=== PATIENT | female | born 1970 | race Caucasian/White ===

== ENCOUNTER 2019-10-31 13:46 | Inpatient (IN) | payer SELFPAY ==
[~2019-10-31] VITALS: Ht 152.4 cm; Wt 68.0 kg
[2019-10-31 18:21] LABS: BASOPHILS % 0.6 % (0.0-2.0); EOSINOPHILS % 0.1 % (0.0-5.0); HEMATOCRIT. 34.1 % (36.0-48.0); HEMOGLOBIN. 11.3 g/dL (12.0-16.0); LYMPHOCYTES % 20.8 % (20.0-50.0); MEAN CORPUSCULAR HEMOGLOBIN 31.3 pg (28.0-32.0); MEAN CORPUSCULAR VOLUME 94.7 fL (81.0-99.0); MEAN PLATELET VOLUME 9.6 fl (7.4-10.4); MONOCYTES % 7.6 % (2.0-8.0); NEUTROPHILS % 70.9 % (40.0-76.0); PLATELET 300 x1000/uL (130-400); RED CELL DISTRIBUTION WIDTH 27.4 % (11.6-14.6)
[2019-10-31 18:23] LABS: CLARITY URINE CLEAR (CLEAR); COLOR URINE YELLOW (YELLOW); KETONES URINE 3+ (NEGATIVE); LEUKOCYTE ESTERASE URINE NEGATIVE (NEGATIVE); NITRITE URINE NEGATIVE (NEGATIVE); OCCULT BLOOD URINE NEGATIVE (NEGATIVE); PH URINE 5.5 (4.5-8.0); PROTEIN URINE NEGATIVE (NEGATIVE); SPECIFIC GRAVITY URINE 1.016 (1.005-1.030); UROBILINOGEN URINE 0.2 E.U./dL (0.2-1.0)
[2019-10-31 18:27] LABS: CHLORIDE 100 mEq/L (98-107)
[2019-10-31 18:28] LABS: HCG SCREEN NEGATIVE
[2019-10-31] MEDS ORDERED: SODIUM CHLORIDE 0.9% 1,000 ML IV ONE (18:34)
[2019-10-31] MEDS ORDERED: ONDANSETRON HCL 4MG/2ML INJ IV STA (18:34)
[2019-10-31] MEDS ORDERED: MORPHINE SULFATE 4 MG/ML CPJ (NOT FOR IM USE) IV STA (18:34)
[2019-10-31 19:21] LABS: PLATELET ESTIMATE NORMAL
[2019-10-31] MEDS ORDERED: CLONIDINE 0.1MG TABLET PO ONE (20:15)
[2019-10-31] MEDS ORDERED: MAGNESIUM CITRATE 300ML SOLUTION PO ONE (20:15)
[2019-10-31] MEDS ORDERED: KETOROLAC 30MG/ML VIAL IV ONE (20:15)
[2019-10-31] MEDS ORDERED: MORPHINE SULFATE 4 MG/ML CPJ (NOT FOR IM USE) IV ONE (21:00)
[2019-10-31] MEDS ORDERED: LORAZEPAM 2MG/ML CPJ IV PRN (23:15)
[2019-10-31] MEDS ORDERED: IPRATROPIUM/ALBUTEROL 0.5-3(2.5)MG/3ML NEB NEB PRN (23:15)
[2019-10-31] MEDS ORDERED: MAGNESIUM/ALUMINUM HYDROXIDE/SIMETHICONE 30ML UDC PO PRN (23:15)
[2019-10-31] MEDS ORDERED: GUAIFENESIN 200MG/10ML SUGAR FREE UDC PO PRN (23:15)
[2019-10-31] MEDS ORDERED: CLONIDINE 0.1MG TABLET PO PRN (23:15)
[2019-10-31] MEDS ORDERED: NA PHOS,M-B/NA PHOS,DI-BA ENEMA 118ML PR PRN (23:15)
[2019-10-31] MEDS ORDERED: DOCUSATE SODIUM 100MG CAPSULE PO PRN (23:15)
[2019-10-31] MEDS ORDERED: ONDANSETRON HCL 4MG/2ML INJ IV PRN (23:15)
[2019-10-31] MEDS ORDERED: ACETAMINOPHEN 325MG TABLET PO PRN (23:15)
[2019-10-31] MEDS ORDERED: DIPHENHYDRAMINE 50MG/ML VIAL IV PRN (23:15)
[2019-10-31] MEDS ORDERED: ZOLPIDEM TARTRATE 5MG TABLET PO ONE (23:45)
[2019-10-31] MEDS ORDERED: ONDANSETRON HCL 4MG/2ML INJ IV ONE (23:45)
[2019-11-01 00:41] LABS: CHLORIDE 106 mEq/L (98-107)
[2019-11-01] MEDS: HYDROCODONE/ACETAMINOPHEN 10/325MG TABLET PO PRN ×2 (02:22→23:58)
[2019-11-01 02:42] VITALS: BP 98/59
[2019-11-01 04:00] VITALS: BP 91/53
[2019-11-01] MEDS ORDERED: CITA40TA22 PO (04:10)
[2019-11-01] MEDS ORDERED: LISI-186 PO (04:11)
[2019-11-01] MEDS ORDERED: AMPH20TA3 PO (04:12)
[2019-11-01 06:35] LABS: CHLORIDE 105 mEq/L (98-107)
[2019-11-01 06:37] LABS: BASOPHILS % 0.6 % (0.0-2.0); EOSINOPHILS % 0.4 % (0.0-5.0); HEMATOCRIT. 28.9 % (36.0-48.0); HEMOGLOBIN. 9.5 g/dL (12.0-16.0); LYMPHOCYTES % 34.9 % (20.0-50.0); MEAN CORPUSCULAR HEMOGLOBIN 31.3 pg (28.0-32.0); MEAN PLATELET VOLUME 9.6 fl (7.4-10.4); MONOCYTES % 7.1 % (2.0-8.0); PLATELET 216 x1000/uL (130-400); RED BLOOD CELL COUNT 3.04 mill/uL (4.2-5.4); RED CELL DISTRIBUTION WIDTH 27.2 % (11.6-14.6)
[2019-11-01 06:44] LABS: LDL CHOLESTEROL 53 mg/dL (5-100)
[2019-11-01 06:46] LABS: HDL CHOLESTEROL 93 mg/dL (40-59); T4 FREE 0.92 ng/dL (0.76-1.46)
[2019-11-01 08:00] VITALS: BP 106/60
[2019-11-01] MEDS: AMLODIPINE 10MG TABLET PO SCH (08:39)
[2019-11-01] MEDS: LISINOPRIL 10MG TABLET PO SCH (08:39)
[2019-11-01] MEDS: ENOXAPARIN 40MG/0.4ML SYR SUBCUT SCH (08:53)
[2019-11-01] MEDS: ASPIRIN 81MG EC TABLET PO SCH (08:54)
[2019-11-01] MEDS: MORPHINE SULFATE 2 MG/ML CPJ (NOT FOR IM USE) IV PRN ×4 (08:54→20:53)
[2019-11-01 12:00] VITALS: BP 120/63
[2019-11-01 16:00] VITALS: BP 121/77
[2019-11-01] MEDS: SODIUM CHLORIDE 0.45% 1,000 ML IV SCH ×2 (16:19→23:12)
[2019-11-01 20:00] VITALS: BP 121/79
[2019-11-01] MEDS: ZOLPIDEM TARTRATE 5MG TABLET PO PRN (21:55)
[2019-11-02] VITALS: BP 120/72
[2019-11-02 04:00] VITALS: BP 134/83
[2019-11-02] MEDS: MORPHINE SULFATE 2 MG/ML CPJ (NOT FOR IM USE) IV PRN ×4 (05:20→21:19)
[2019-11-02] MEDS: OMEPRAZOLE 20MG CAPSULE EXTENDED RELEASE PO SCH ×3 (05:20→20:51)
[2019-11-02 07:56] LABS: BASOPHILS % 0.4 % (0.0-2.0); EOSINOPHILS % 0.5 % (0.0-5.0); HEMOGLOBIN. 9.9 g/dL (12.0-16.0); LYMPHOCYTES % 37.6 % (20.0-50.0); MEAN CORPUSCULAR HEMOGLOBIN 31.6 pg (28.0-32.0); MEAN CORPUSCULAR VOLUME 95.7 fL (81.0-99.0); MEAN PLATELET VOLUME 9.4 fl (7.4-10.4); NEUTROPHILS % 52.5 % (40.0-76.0); PLATELET 198 x1000/uL (130-400); RED BLOOD CELL COUNT 3.14 mill/uL (4.2-5.4); RED CELL DISTRIBUTION WIDTH 27.5 % (11.6-14.6)
[2019-11-02 08:00] VITALS: BP 150/85
[2019-11-02] MEDS: AMLODIPINE 10MG TABLET PO SCH (08:07)
[2019-11-02] MEDS: DOCUSATE SODIUM 100MG CAPSULE PO SCH ×2 (08:07→17:05)
[2019-11-02] MEDS: LISINOPRIL 10MG TABLET PO SCH (08:08)
[2019-11-02] MEDS: HYDROCODONE/ACETAMINOPHEN 10/325MG TABLET PO PRN ×3 (08:08→17:59)
[2019-11-02] MEDS: ENOXAPARIN 40MG/0.4ML SYR SUBCUT SCH (08:09)
[2019-11-02] MEDS: ASPIRIN 81MG EC TABLET PO SCH (08:19)
[2019-11-02 08:51] LABS: CHLORIDE 107 mEq/L (98-107)
[2019-11-02 08:57] LABS: TOTAL IRON BINDING CAPACITY 291 ug/dL (250-450)
[2019-11-02 08:59] LABS: AMYLASE 31 IU/L (25-115)
[2019-11-02 09:01] LABS: CREATINE KINASE 26 IU/L (26-192); T4 FREE 0.93 ng/dL (0.76-1.46)
[2019-11-02 12:00] VITALS: BP 108/66
[2019-11-02] MEDS ORDERED: MAGNESIUM 2 G PREMIX 50 ML IV NR (14:00)
[2019-11-02 16:00] VITALS: BP 101/62
[2019-11-02 20:00] VITALS: BP 114/74
[2019-11-02] MEDS ORDERED: BISACODYL 5MG TABLET PO NR (22:15)
[2019-11-02] MEDS: ZOLPIDEM TARTRATE 5MG TABLET PO PRN (22:35)
[2019-11-03] VITALS: BP 111/61
[2019-11-03] MEDS: METOCLOPRAMIDE HCL 10MG/2ML VIAL IV SCH ×4 (03:20→17:33)
[2019-11-03 04:00] VITALS: BP 146/80
[2019-11-03] MEDS ORDERED: BISACODYL 5MG TABLET PO NR (04:00)
[2019-11-03] MEDS: MAGNESIUM CITRATE 300ML SOLUTION PO NR ×2 (05:45→05:54)
[2019-11-03] MEDS: MORPHINE SULFATE 2 MG/ML CPJ (NOT FOR IM USE) IV PRN ×3 (05:46→20:45)
[2019-11-03] MEDS: SODIUM CHLORIDE 0.45% 1,000 ML IV SCH (05:47)
[2019-11-03 07:09] LABS: BASOPHILS % 0.8 % (0.0-2.0); EOSINOPHILS % 0.9 % (0.0-5.0); HEMATOCRIT. 32.5 % (36.0-48.0); HEMOGLOBIN. 10.6 g/dL (12.0-16.0); LYMPHOCYTES % 35.3 % (20.0-50.0); MEAN CORPUSCULAR HEMOGLOBIN 31.3 pg (28.0-32.0); MEAN CORPUSCULAR VOLUME 96.3 fL (81.0-99.0); MEAN PLATELET VOLUME 9.5 fl (7.4-10.4); MONOCYTES % 11.8 % (2.0-8.0); NEUTROPHILS % 51.2 % (40.0-76.0); PLATELET 249 x1000/uL (130-400); RED BLOOD CELL COUNT 3.38 mill/uL (4.2-5.4); RED CELL DISTRIBUTION WIDTH 28.6 % (11.6-14.6)
[2019-11-03 07:59] LABS: CHLORIDE 108 mEq/L (98-107)
[2019-11-03 08:00] VITALS: BP 116/61
[2019-11-03] MEDS: LISINOPRIL 10MG TABLET PO SCH (08:06)
[2019-11-03] MEDS: OMEPRAZOLE 20MG CAPSULE EXTENDED RELEASE PO SCH ×2 (08:06→20:45)
[2019-11-03] MEDS: DOCUSATE SODIUM 250MG CAPSULE PO SCH ×3 (08:07→17:36)
[2019-11-03] MEDS: AMLODIPINE 10MG TABLET PO SCH (08:07)
[2019-11-03] MEDS: ASPIRIN 81MG EC TABLET PO SCH (08:08)
[2019-11-03] MEDS: POLYETHYLENE GLYCOL 3350 (17GM) 1 DOSE PACK PO SCH (08:08)
[2019-11-03] MEDS: ENOXAPARIN 40MG/0.4ML SYR SUBCUT SCH (08:12)
[2019-11-03] MEDS: HYDROCODONE/ACETAMINOPHEN 10/325MG TABLET PO PRN ×2 (09:19→17:51)
[2019-11-03 12:00] VITALS: BP 123/71
[2019-11-03 16:00] VITALS: BP 113/58
[2019-11-03 20:00] VITALS: BP 108/54
[2019-11-03] MEDS: ZOLPIDEM TARTRATE 5MG TABLET PO PRN (20:45)
[2019-11-04] MEDS: METOCLOPRAMIDE HCL 10MG/2ML VIAL IV SCH
[2019-11-04 04:00] VITALS: BP 128/72
[2019-11-04] MEDS: MORPHINE SULFATE 2 MG/ML CPJ (NOT FOR IM USE) IV PRN ×2 (04:33→09:34)
[2019-11-04] MEDS: SODIUM CHLORIDE 0.45% 1,000 ML IV SCH (04:34)
[2019-11-04] MEDS: OMEPRAZOLE 20MG CAPSULE EXTENDED RELEASE PO SCH (06:42)
[2019-11-04] MEDS: HYDROCODONE/ACETAMINOPHEN 10/325MG TABLET PO PRN ×2 (06:42→11:02)
[2019-11-04 06:53] LABS: HEMATOCRIT. 29.8 % (36.0-48.0); MEAN CORPUSCULAR HEMOGLOBIN 32.2 pg (28.0-32.0); MEAN CORPUSCULAR VOLUME 96.5 fL (81.0-99.0); MEAN PLATELET VOLUME 9.3 fl (7.4-10.4); PLATELET 194 x1000/uL (130-400); RED BLOOD CELL COUNT 3.09 mill/uL (4.2-5.4); RED CELL DISTRIBUTION WIDTH 27.9 % (11.6-14.6)
[2019-11-04 07:29] LABS: CHLORIDE 106 mEq/L (98-107)
[2019-11-04 08:00] VITALS: BP 110/62
[2019-11-04] MEDS: POLYETHYLENE GLYCOL 3350 (17GM) 1 DOSE PACK PO SCH (09:00)
[2019-11-04] MEDS: ENOXAPARIN 40MG/0.4ML SYR SUBCUT SCH (09:33)
[2019-11-04] MEDS: ASPIRIN 81MG EC TABLET PO SCH (09:35)
[2019-11-04] MEDS: DOCUSATE SODIUM 250MG CAPSULE PO SCH (09:35)
[2019-11-04] MEDS: LISINOPRIL 10MG TABLET PO SCH (09:35)
[2019-11-04] MEDS: AMLODIPINE 10MG TABLET PO SCH (09:35)
[2019-11-04 10:01] LABS: PLATELET ESTIMATE NORMAL
[2019-11-04 11:45] VITALS: BP 112/62
[2019-11-04 12:00] VITALS: BP 112/60
== END 2019-11-04 12:00 | disposition home or self-care (01) | DRG 251 ==
LOC: ER 13:46 → 7WST 22:26 → ENRESERV 23:24
PROVIDERS: ADMIT Internal Medicine; ATTEND Internal Medicine
DX: R10.9 Unspecified abdominal pain (principal); K76.0 Fatty (change of) liver, not elsewhere classified; D72.819 Decreased white blood cell count, unspecified; E03.9 Hypothyroidism, unspecified; E86.0 Dehydration; F32.9 Major depressive disorder, single episode, unspecified; I10 Essential (primary) hypertension; K59.00 Constipation, unspecified; K58.1 Irritable bowel syndrome with constipation; R74.0 Nonspecific elevation of levels of transaminase and lactic acid dehydrogenase [LDH]; Z90.710 Acquired absence of both cervix and uterus; Z90.49 Acquired absence of other specified parts of digestive tract; Z98.84 Bariatric surgery status; Z88.1 Allergy status to other antibiotic agents
CPT/HCPCS: 36415; 74176; 76700; 80048; 80053; 80061; 80076; 80307; 81003; 81025; 82150; 82270; 82550; 82728; 83036; 83540; 83550; 83735; 83880; 84439; 84443; 84484; 84703; 85025; 87015; 87045; 87427; 87449; 89055; 96374; 99285; J1200; J1650; J1885; J2060; J2270; J2405; J2765; J3475; J7030